=== PATIENT | male | born 1975 | race Caucasian/White ===

== ENCOUNTER 2016-12-03 08:49 | Emergency (ER) | payer OTHER ==
[~2016-12-03] VITALS: Ht 177.8 cm; Wt 100.3 kg
[~2016-12-03 08:49] MED LIST: BEN20 PO; COL100 PO; FLA500 PO; MORGIDOX 1X100100 MG PO; MOT600 PO; NOR10T PO; ROB750 PO; TRA50 PO; ULT50 PO; ZOF4 PO; ZOL50 PO; ZYV600 PO
[2016-12-03 10:56] VITALS: BP 145/99
== END 2016-12-03 10:56 | disposition home or self-care (01) ==
LOC: ED 08:49
DX: L02.811 Cutaneous abscess of head [any part, except face] (principal)

== ENCOUNTER 2017-01-22 15:05 | Emergency (ER) | payer OTHER ==
[2017-01-22 16:27] LABS: BASOPHIL % 0.7 % (0-2); PLATELET COUNT 187 x10^3mcL (130-400); RED CELL DISTRIBUTION WIDTH 13.2 % (11.5-14.5)
[2017-01-22 16:33] LABS: CALCIUM 8.8 mg/dL (8.5-10.1); CARBON DIOXIDE 24.9 mmol/L (21-32); CHLORIDE SERUM 108 mmol/L (98-107); CREATININE SERUM 1.2 mg/dL (0.7-1.3); GFR1 > 60 mL/min; GLUCOSE SERUM 122 mg/dL (74-106); POTASSIUM SERUM 3.4 mmol/L (3.5-5.1); SODIUM SERUM 146 mmol/L (136-145)
[2017-01-22 16:36] LABS: ALKALINE PHOSPHATASE 56 U/L (46-116); ALT/SGPT 40 U/L (16-63); AMYLASE 51 U/L (25-115); AST/SGOT 21 U/L (15-37); BILIRUBIN TOTAL 0.79 mg/dL (0.20-1.00); LIPASE 240 IU/L (73-393); TOTAL PROTEIN, SERUM 7.3 g/dL (6.4-8.2)
[2017-01-22 18:55] VITALS: BP 115/75
== END 2017-01-22 18:55 | disposition home or self-care (01) ==
LOC: ED 15:05
PROVIDERS: Emergency Medicine
DX: K59.00 Constipation, unspecified (principal); R11.10 Vomiting, unspecified
CPT/HCPCS: 83880; J2270; J2405; J3490; J7030

== ENCOUNTER 2017-01-30 20:00 | Emergency (ER) | payer OTHER ==
[~2017-01-30] VITALS: Ht 177.8 cm; Wt 93.9 kg
[2017-01-30 21:19] VITALS: BP 136/106
== END 2017-01-30 21:19 | disposition home or self-care (01) ==
LOC: ED 20:00
DX: M72.2 Plantar fascial fibromatosis (principal); R03.0 Elevated blood-pressure reading, without diagnosis of hypertension

== ENCOUNTER 2017-03-06 08:20 | Emergency (ER) | payer OTHER ==
[~2017-03-06] VITALS: Ht 177.8 cm; Wt 97.1 kg
[2017-03-06 10:04] VITALS: BP 155/95
== END 2017-03-06 10:04 | disposition home or self-care (01) ==
LOC: ED 08:20
DX: R07.89 Other chest pain (principal); R10.11 Right upper quadrant pain
CPT/HCPCS: J2270

== ENCOUNTER 2017-03-24 13:02 | Emergency (ER) | payer OTHER ==
[2017-03-24 13:55] LABS: BASOPHIL % 0.4 % (0-2); PLATELET COUNT 242 x10^3mcL (130-400); RED CELL DISTRIBUTION WIDTH 13.5 % (11.5-14.5)
[2017-03-24 15:07] LABS: CALCIUM 8.9 mg/dL (8.5-10.1); CARBON DIOXIDE 27.5 mmol/L (21-32); CREATININE SERUM 1.4 mg/dL (0.7-1.3); POTASSIUM SERUM 3.6 mmol/L (3.5-5.1)
[2017-03-24 15:12] LABS: ALBUMIN 4.1 g/dL (3.4-5.0); BILIRUBIN TOTAL 0.6 mg/dL (0.20-1.00); TOTAL PROTEIN, SERUM 7.7 g/dL (6.4-8.2)
[2017-03-24 16:01] VITALS: BP 144/87
== END 2017-03-24 16:01 | disposition home or self-care (01) ==
LOC: ED 13:02
PROVIDERS: Emergency Medicine
DX: R10.9 Unspecified abdominal pain (principal); R04.2 Hemoptysis; Z90.49 Acquired absence of other specified parts of digestive tract; F43.10 Post-traumatic stress disorder, unspecified; Z79.891 Long term (current) use of opiate analgesic
CPT/HCPCS: J1885; J3010; J7040; Q0092

== ENCOUNTER 2017-06-07 16:44 | Emergency (ER) | payer OTHER ==
[~2017-06-07] VITALS: Ht 177.8 cm; Wt 96.2 kg
[2017-06-07 17:45] VITALS: BP 158/99
== END 2017-06-07 17:45 | disposition home or self-care (01) ==
LOC: ED 16:44
DX: R04.2 Hemoptysis (principal); R03.0 Elevated blood-pressure reading, without diagnosis of hypertension; F43.10 Post-traumatic stress disorder, unspecified

== ENCOUNTER 2017-07-03 14:26 | Emergency (ER) | payer OTHER | END 2017-07-03 16:34 | disposition other institution (70) | LOC: ED 14:26 | DX: Z02.89 Encounter for other administrative examinations (principal) ==

== ENCOUNTER 2017-07-03 14:26 | Emergency (ER) | payer OTHER ==
[~2017-07-03] VITALS: Ht 177.8 cm; Wt 95.2 kg
[2017-07-03 16:34] VITALS: BP 146/92
== END 2017-07-03 16:34 | disposition other institution (70) ==
LOC: ED 14:26
DX: S66.318A Strain of extensor muscle, fascia and tendon of other finger at wrist and hand level, initial encounter (principal); F41.9 Anxiety disorder, unspecified; Z90.89 Acquired absence of other organs; X58.XXXA Exposure to other specified factors, initial encounter; Y93.89 Activity, other specified; Y92.89 Other specified places as the place of occurrence of the external cause; Y99.8 Other external cause status

== ENCOUNTER 2017-08-16 21:16 | Emergency (ER) | payer OTHER ==
[~2017-08-16] VITALS: Ht 175.3 cm; Wt 93.0 kg
[2017-08-16 21:21] VITALS: Ht 175.3 cm; Wt 93.0 kg
[2017-08-17 00:06] VITALS: BP 129/83
== END 2017-08-17 00:06 | disposition home or self-care (01) ==
LOC: ED 21:16
DX: J02.9 Acute pharyngitis, unspecified (principal); J06.9 Acute upper respiratory infection, unspecified
CPT/HCPCS: J0561; J1100

== ENCOUNTER 2017-08-20 18:30 | Emergency (ER) | payer OTHER ==
[~2017-08-20] VITALS: Ht 177.8 cm; Wt 89.8 kg
[2017-08-20 18:36] VITALS: BP 118/51; Ht 177.8 cm; Wt 89.8 kg
== END 2017-08-20 19:51 | disposition left against medical advice (07) ==
LOC: ED 18:30
DX: Z53.21 Procedure and treatment not carried out due to patient leaving prior to being seen by health care provider (principal)

== ENCOUNTER 2018-04-24 23:19 | Emergency (ER) | payer MEDICAID ==
[~2018-04-24] VITALS: Ht 177.8 cm; Wt 96.2 kg
[2018-04-24 23:24] VITALS: Ht 177.8 cm; Wt 96.2 kg
[2018-04-25 01:23] VITALS: BP 141/99
== END 2018-04-25 01:23 | disposition home or self-care (01) ==
LOC: ED 23:19
DX: G89.29 Other chronic pain (principal); R10.9 Unspecified abdominal pain; R07.89 Other chest pain; Z87.19 Personal history of other diseases of the digestive system

== ENCOUNTER 2018-06-12 10:09 | Inpatient (IN) | payer MEDICAID ==
[~2018-06-12] VITALS: Ht 177.8 cm; Wt 97.3 kg
[2018-06-12 10:13] VITALS: Ht 177.8 cm; Wt 97.3 kg
[2018-06-12 11:39] LABS: BASOPHIL % 1.4 % (0-2); PLATELET COUNT 191 x10^3mcL (130-400); RED CELL DISTRIBUTION WIDTH 13.1 % (11.5-14.5)
[2018-06-12 11:44] LABS: CALCIUM 9.2 mg/dL (8.5-10.1); CARBON DIOXIDE 26.1 mmol/L (21-32); CHLORIDE SERUM 104 mmol/L (98-107); GFR1 > 60 mL/min; GLUCOSE SERUM 108 mg/dL (74-106); POTASSIUM SERUM 3.8 mmol/L (3.5-5.1); SODIUM SERUM 137 mmol/L (136-145)
[2018-06-12 11:48] LABS: ALBUMIN 3.9 g/dL (3.4-5.0); ALKALINE PHOSPHATASE 64 U/L (46-116); ALT/SGPT 44 U/L (16-63); AST/SGOT 20 U/L (15-37); BILIRUBIN TOTAL 0.3 mg/dL (0.20-1.00); TOTAL PROTEIN, SERUM 7.3 g/dL (6.4-8.2)
[2018-06-12 14:58] LABS: T3 TOTAL 1.24 ng/mL
[2018-06-12 15:02] LABS: MAGNESIUM 2.2 mg/dL (1.8-2.4); PHOSPHOROUS 3.1 mg/dL (2.5-4.9)
[2018-06-12 15:03] LABS: CHOLESTEROL/HDL RATIO 6.5
[2018-06-12] MEDS ORDERED: XANAX0.5 MG PO (15:04)
[2018-06-12] MEDS ORDERED: NORCO 10-325 T1 EACH PO (15:04)
[2018-06-12 15:06] LABS: FREE T4 0.91 ng/dL (0.76-1.46); FREE THYROXINE INDEX 2.2 ug/dL (1.4-4.5); T4(THYROXINE) 6.3 ug/dL (4.7-13.3)
[2018-06-12 16:11] VITALS: BP 143/104
[2018-06-12 20:43] VITALS: BP 128/85
[2018-06-13 04:23] LABS: BASOPHIL % 1.2 % (0-2); PLATELET COUNT 195 x10^3mcL (130-400); RED CELL DISTRIBUTION WIDTH 13.2 % (11.5-14.5)
[2018-06-13 04:34] LABS: CALCIUM 8.7 mg/dL (8.5-10.1); CARBON DIOXIDE 29.3 mmol/L (21-32); CHLORIDE SERUM 105 mmol/L (98-107); GFR1 > 60 mL/min; GLUCOSE SERUM 106 mg/dL (74-106); MAGNESIUM 1.9 mg/dL (1.8-2.4); PHOSPHOROUS 4.5 mg/dL (2.5-4.9); POTASSIUM SERUM 4.2 mmol/L (3.5-5.1); SODIUM SERUM 139 mmol/L (136-145)
[2018-06-13 06:08] VITALS: BP 141/92
[2018-06-13 08:23] VITALS: BP 119/83
[2018-06-13 11:30] VITALS: BP 117/82
[2018-06-13 17:16] VITALS: BP 124/81
[2018-06-13 21:16] VITALS: BP 144/94
[2018-06-14 05:28] VITALS: BP 118/85
[2018-06-14 06:11] LABS: CALCIUM 8.8 mg/dL (8.5-10.1); CARBON DIOXIDE 27.6 mmol/L (21-32); CHLORIDE SERUM 108 mmol/L (98-107); CREATININE SERUM 0.9 mg/dL (0.7-1.3); GFR1 > 60 mL/min; GLUCOSE SERUM 110 mg/dL (74-106); POTASSIUM SERUM 3.7 mmol/L (3.5-5.1); SODIUM SERUM 141 mmol/L (136-145)
[2018-06-14 07:59] LABS: BASOPHIL % 1.2 % (0-2); PLATELET COUNT 194 x10^3mcL (130-400); RED CELL DISTRIBUTION WIDTH 13.1 % (11.5-14.5)
[2018-06-14 09:30] VITALS: BP 118/82
[2018-06-14] MEDS ORDERED: ZES10 PO (10:30)
[2018-06-14 11:22] VITALS: BP 118/82
== END 2018-06-14 11:50 | disposition home or self-care (01) | DRG 756 ==
LOC: ED 10:09 → DU 14:02
PROVIDERS: Emergency Medicine; Family Medicine
DX: F41.9 Anxiety disorder, unspecified (principal); R04.2 Hemoptysis; I16.0 Hypertensive urgency; F15.10 Other stimulant abuse, uncomplicated; E78.5 Hyperlipidemia, unspecified; E66.9 Obesity, unspecified; Z68.31 Body mass index [BMI] 31.0-31.9, adult
CPT/HCPCS: 36600; 83880; 84439; 85378; G0480; Q9967

== ENCOUNTER 2018-08-13 04:29 | Emergency (ER) | payer OTHER ==
[~2018-08-13] VITALS: Ht 177.8 cm; Wt 103.0 kg
[~2018-08-13 04:29] MED LIST changes: +NORCO 10-325 T1 EACH PO; +XANAX0.5 MG PO; +ZES10 PO
[2018-08-13 04:31] VITALS: Ht 177.8 cm; Wt 103.0 kg
[2018-08-13 05:28] VITALS: BP 157/103
== END 2018-08-13 05:25 | disposition home or self-care (01) ==
LOC: ED 04:29
DX: G89.29 Other chronic pain (principal); R07.89 Other chest pain; R10.9 Unspecified abdominal pain; F41.9 Anxiety disorder, unspecified
CPT/HCPCS: J1885; Q0092

== ENCOUNTER 2018-08-27 04:23 | Emergency (ER) | payer OTHER ==
[~2018-08-27] VITALS: Ht 190.5 cm; Wt 40.8 kg
[2018-08-27 04:26] VITALS: Ht 190.5 cm; Wt 40.8 kg
[2018-08-27 05:33] LABS: BASOPHIL % 0.8 % (0-2); PLATELET COUNT 188 x10^3mcL (130-400); RED CELL DISTRIBUTION WIDTH 13.3 % (11.5-14.5)
[2018-08-27 05:37] LABS: CALCIUM 8.6 mg/dL (8.5-10.1); CHLORIDE SERUM 103 mmol/L (98-107); GFR1 > 60 mL/min; GLUCOSE SERUM 129 mg/dL (74-106); POTASSIUM SERUM 3.7 mmol/L (3.5-5.1); SODIUM SERUM 139 mmol/L (136-145)
[2018-08-27 05:42] LABS: ALBUMIN 3.7 g/dL (3.4-5.0); ALKALINE PHOSPHATASE 62 U/L (46-116); ALT/SGPT 74 U/L (16-63); AST/SGOT 43 U/L (15-37); BILIRUBIN TOTAL 0.28 mg/dL (0.20-1.00); TOTAL PROTEIN, SERUM 6.6 g/dL (6.4-8.2)
[2018-08-27 06:47] VITALS: BP 149/98
== END 2018-08-27 06:48 | disposition home or self-care (01) ==
LOC: ED 04:23
PROVIDERS: Emergency Medicine
DX: I10 Essential (primary) hypertension (principal); R07.89 Other chest pain; F41.9 Anxiety disorder, unspecified; G47.00 Insomnia, unspecified
CPT/HCPCS: 36415; J1885; Q0092

== ENCOUNTER 2018-11-06 03:36 | Emergency (ER) | payer OTHER ==
[~2018-11-06] VITALS: Ht 177.8 cm; Wt 105.2 kg
[2018-11-06 03:41] VITALS: Ht 177.8 cm; Wt 105.2 kg
[2018-11-06 04:27] LABS: CALCIUM 10.5 mg/dL (8.5-10.1); CARBON DIOXIDE 28.6 mmol/L (21-32); CHLORIDE SERUM 102 mmol/L (98-107); CREATININE SERUM 1.1 mg/dL (0.7-1.3); GFR1 > 60 mL/min; GLUCOSE SERUM 125 mg/dL (74-106); POTASSIUM SERUM 3.6 mmol/L (3.5-5.1); SODIUM SERUM 139 mmol/L (136-145)
[2018-11-06 04:32] LABS: ALBUMIN 3.8 g/dL (3.4-5.0); ALKALINE PHOSPHATASE 65 U/L (46-116); ALT/SGPT 111 U/L (16-63); AST/SGOT 77 U/L (15-37); BILIRUBIN TOTAL 0.51 mg/dL (0.20-1.00); LIPASE 224 IU/L (73-393); TOTAL PROTEIN, SERUM 7.2 g/dL (6.4-8.2)
[2018-11-06 04:37] LABS: BASOPHIL % 0.7 % (0-2); PLATELET COUNT 222 x10^3mcL (130-400); RED CELL DISTRIBUTION WIDTH 13.8 % (11.5-14.5)
[2018-11-06 05:45] VITALS: BP 135/77
== END 2018-11-06 05:45 | disposition home or self-care (01) ==
LOC: ED 03:36
PROVIDERS: Emergency Medicine
DX: R07.89 Other chest pain (principal); R10.13 Epigastric pain; R14.0 Abdominal distension (gaseous); F41.9 Anxiety disorder, unspecified; F43.10 Post-traumatic stress disorder, unspecified
CPT/HCPCS: J1885; J2405; J7030; Q0092

== ENCOUNTER 2019-02-22 19:44 | Emergency (ER) | payer OTHER ==
[~2019-02-22] VITALS: Ht 177.8 cm; Wt 96.6 kg
[2019-02-22 19:50] VITALS: Ht 177.8 cm; Wt 96.6 kg
[2019-02-22 20:28] LABS: BASOPHIL % 0.9 % (0-2); PLATELET COUNT 209 x10^3mcL (130-400); RED CELL DISTRIBUTION WIDTH 14.3 % (11.5-14.5)
[2019-02-22 20:38] LABS: CARBON DIOXIDE 25.3 mmol/L (21-32); CHLORIDE SERUM 106 mmol/L (98-107); CREATININE SERUM 0.9 mg/dL (0.7-1.3); GFR1 > 60 mL/min; GLUCOSE SERUM 102 mg/dL (74-106); POTASSIUM SERUM 3.6 mmol/L (3.5-5.1); SODIUM SERUM 143 mmol/L (136-145)
[2019-02-22 20:43] LABS: ALBUMIN 4.1 g/dL (3.4-5.0); ALKALINE PHOSPHATASE 57 U/L (46-116); ALT/SGPT 55 U/L (16-63); AST/SGOT 26 U/L (15-37); BILIRUBIN TOTAL 0.52 mg/dL (0.20-1.00); CHOLESTEROL 196 mg/dL (<200); CHOLESTEROL/HDL RATIO 4.6; HDL CHOLESTEROL 43 mg/dL (40-60); TOTAL PROTEIN, SERUM 7.2 g/dL (6.4-8.2); TRIGLYCERIDES 172 mg/dL (<150)
[2019-02-22 21:24] LABS: AMPHETAMINE QUAL UR POSITIVE (See below)
[2019-02-23 00:19] VITALS: BP 166/114
== END 2019-02-23 00:19 | disposition home or self-care (01) ==
LOC: ED 19:44
PROVIDERS: Specialist
DX: R04.2 Hemoptysis (principal); R07.89 Other chest pain; R10.13 Epigastric pain; R10.11 Right upper quadrant pain; F15.10 Other stimulant abuse, uncomplicated; F41.9 Anxiety disorder, unspecified; Z90.49 Acquired absence of other specified parts of digestive tract; Z98.890 Other specified postprocedural states
CPT/HCPCS: G0480; J3010; J7030; Q0092; Q9967

== ENCOUNTER 2019-03-03 04:38 | Inpatient (IN) | payer OTHER ==
[~2019-03-03] VITALS: Ht 177.8 cm; Wt 99.8 kg
[2019-03-03 04:41] VITALS: Ht 177.8 cm; Wt 99.8 kg
--- NOTE | 2019-03-03 04:44 | NUR ---
EKG IN PROGRESS IN TRIAGE
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
[2019-03-03 06:02] LABS: BASOPHIL % 0.7 % (0-2); PLATELET COUNT 167 x10^3mcL (130-400); RED CELL DISTRIBUTION WIDTH 13.9 % (11.5-14.5)
[2019-03-03 06:10] LABS: CALCIUM 8.7 mg/dL (8.5-10.1); CHLORIDE SERUM 106 mmol/L (98-107); GFR1 > 60 mL/min; GLUCOSE SERUM 116 mg/dL (74-106); POTASSIUM SERUM 3.3 mmol/L (3.5-5.1); SODIUM SERUM 142 mmol/L (136-145)
[2019-03-03 06:15] LABS: ALBUMIN 3.4 g/dL (3.4-5.0); ALKALINE PHOSPHATASE 62 U/L (46-116); ALT/SGPT 40 U/L (16-63); AST/SGOT 15 U/L (15-37); LIPASE 246 IU/L (73-393); TOTAL PROTEIN, SERUM 6.5 g/dL (6.4-8.2)
--- NOTE | 2019-03-03 06:30 | NUR ---
PT IS LAYING IN POSITION OF COMFORT IN SEMI JARRETT'S, PT IS AAOX4, NO DISTRESS NOTED, RESP E/U, SKIN INTACT WARM AND DRY. PT ON FULL CM, NSR, VSS, MMADE AWARE. BED IN LOWEST POSITION, SIDERAIL X1 UP FOR SAFETY, ADN CALL AGOSTO WITHIN REACH. WILL CONT TO MONITOR.
--- NOTE | 2019-03-03 07:09 | NUR ---
GAVE REPORT TO TRUDY GUAMAN WHO WILL RESUME FURTHER CARE OF THIS PATIENT.
--- NOTE | 2019-03-03 07:13 | NUR ---
REPORT RECEIVED FROM DENIZ MONTES. PT NOTED TO BE RESTING ON ED GURNEY, RESPS E/U, NAD NOTED, IV TO LFA PATENT.PT ON FULL CM, CALL LIGHT WITHIN REACH, IN POSITION OF COMFORT.
--- NOTE | 2019-03-03 07:41 | NUR ---
GAVE REPORT TO MOISÉS GUAMAN ON TELE WHO WILL RESUME FURTHER CARE OF THIS PATIENT.
--- NOTE | 2019-03-03 07:46 | NUR ---
INFORMED MD OF PATIENT'S REQUEST FOR PAIN MEDICATION, DR WEISS TO PT IN ORDERS FOR PAIN MEDICATION.
--- NOTE | 2019-03-03 08:03 | NUR ---
PT MEDICATED PER EMAR.
[2019-03-03 08:57] VITALS: BP 147/94
[2019-03-03 08:59] LABS: AMYLASE 57 U/L (25-115); PHOSPHOROUS 3.2 mg/dL (2.5-4.9)
[2019-03-03 09:14] LABS: CHOLESTEROL 206 mg/dL (<200); CHOLESTEROL/HDL RATIO 6.9; HDL CHOLESTEROL 30 mg/dL (40-60); TRIGLYCERIDES 413 mg/dL (<150)
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
--- NOTE | 2019-03-03 09:43 | NUR ---
NORCO GIVEN PER OCT FOR CHEST/THROAT PAIN 04/14, PLUS TUMS. IV INFUSION NS 70 ML/HR TO LFA STARTED PER OCT, SITE WITHOUT COMPLICATIONS, PATENT. WILL MONITOR.
--- NOTE | 2019-03-03 10:39 | NUR ---
SPOKE WITH DR. BARNETT IN [facility] DURING ROUNDS. INFORMED PATIENT HAS HAD NO RELIEF OF CHEST PAIN 04/14 FROM [place]. DOCTOR TO EVALUATE AND PLACE ORDERS APPROPRIATE. WILL AWAIT ORDERS.
--- NOTE | 2019-03-03 13:29 | NUR ---
PATIENT REPORTING 9/10 PAIN TO UPPER CHEST AND THROAT UNRELIEVED BY NORCO AND TUMS OR FENTANYL IN THE E.D. PRIOR TO ARRIVAL TO THE UNIT. MORPHINE 2 MG IVP GIVEN PER OCT. WILL MONITOR.
--- NOTE | 2019-03-03 15:15 | NUR ---
PATIENT HAVING ECHOCARDIOGRAM AT THIS TIME. NO APPARENT DISTRESS.
[2019-03-03 17:46] VITALS: BP 153/89
[2019-03-03 18:10] LABS: microscopic required? NO
[2019-03-03 18:15] LABS: urine erythrocyte NEGATIVE (NEGATIVE)
[2019-03-03 18:30] LABS: AMPHETAMINE QUAL UR POSITIVE (See below)
--- NOTE | 2019-03-03 18:52 | NUR ---
MORPHINE GIVEN PER MAR FOR 03/14 CHEST/THROAT PAIN. NO OTHER NEEDS AT THIS TIME. WILL MONITOR.
--- NOTE | 2019-03-03 19:35 | NUR ---
REPORT GIVEN TO DENIZ ELAINE. NS 70 ML/HR INFUSING TO LEFT FOREARM WITHOUT COMPLICATIONS. PATIENT IN NO ACUTE DISTRESS. BED LOW, CALL LIGHT WITHIN REACH. CARE ENDORSED.
--- NOTE | 2019-03-03 20:00 | NUR ---
RECEIVED PT , RESTING QUIETLY IN BED. A/O X4. RESP. EVEN AND UNLABORED. LUNG SOUNDS CLEAR BILAT. ON ROOM AIR, NO ACUTE DISTRESS NOTED. SR ON THE MONITOR, DENIES CP OR ANY DISCOMFORT AT THIS TIME. AFEBRILE AND VITAL SIGNS STABLE. IVF, NS AT 70ML/HR, INTACT AND INFUSING VIA LFA. SITE CLEAR. VOIDING FREELY. CALL LIGHT WITHIN REACH.WILL CONTINUE TO MONITOR.
[2019-03-03 21:23] VITALS: BP 133/88
--- NOTE | 2019-03-03 23:20 | NUR ---
NECK COLLAR APPLIED. WILL CONTINUE TO MONITOR.
--- NOTE | 2019-03-04 01:44 | NUR ---
NO COMPLAINTS NOTED AT THIS TIME. EYES CLOSED, APPEARS ASLEEP, EASILY AROUSABLE.RESP. EVEN AND UNLABORED. NO ACUTE DISTRESS NOTED. CALL LIGHT WITHIN REACH. WILL CONTINUE TO MONITOR.
--- NOTE | 2019-03-04 02:16 | NUR ---
COMPLAINED OF GEN. BODY PAIN, 5/10, MEDICATED WITH MORPHINE SULFATE ORDERED. WILL CONTINUE TO MONITOR.
[2019-03-04 05:57] VITALS: BP 157/90
--- NOTE | 2019-03-04 06:26 | NUR ---
AFEBRILE AND VITAL SIGNS STABLE. NO COMPLAINTS NOTED AT THIS TIME. RESP. EVEN AND UNLABORED, NO ACUTE DISTRESS NOTED. REMAINS SR ON THE MONITOR, DENIES CP OR PRESSURE AT THIS TIME. IVF INTACT AND INFUSING WELL , SITE CLEAR. KEPT COMFORTABLE. CALL LIGHT WITHIN REACH. WILL ENDORSE TO INCOMING NURSE.
--- NOTE | 2019-03-04 07:10 | NUR ---
RECEIVED PT FROM NIGHT NURSE. PT IS LAYING DOWN IN BED WITH HOB UP WITH A NECK COLLAR PRESENT. PT STATES THE NECK COLLAR HELPS WITH THE PAIN AND HELPS HIM TO HOLD UP HIS HEAD. RESPIRATIONS EVEN AND UNLABORED ON ROOM AIR. IV SITE PATENT WITH NO SIGNS OF ERYTHEMA OR SWELLING WITH IV FLUIDS INFUSING. PT DENIES ANY EPISODES OF BLOODY VOMIT OVER NIGHT. PT IS COMPLAINING OF 8/10 PAIN TO THE NECK. BED IN LOWEST POSITION, CALL LIGHT WITHIN REACH. WILL CONTINUE TO MONITOR.
[2019-03-04 09:31] VITALS: BP 160/91
[2019-03-04 10:19] LABS: BASOPHIL % 0.7 % (0-2); PLATELET COUNT 169 x10^3mcL (130-400); RED CELL DISTRIBUTION WIDTH 14.1 % (11.5-14.5)
[2019-03-04 10:25] LABS: CALCIUM 8.6 mg/dL (8.5-10.1); CARBON DIOXIDE 28.4 mmol/L (21-32); CHLORIDE SERUM 104 mmol/L (98-107); CREATININE SERUM 0.9 mg/dL (0.7-1.3); GFR1 > 60 mL/min; GLUCOSE SERUM 100 mg/dL (74-106); POTASSIUM SERUM 3.5 mmol/L (3.5-5.1); SODIUM SERUM 141 mmol/L (136-145)
[2019-03-04 12:50] VITALS: BP 150/102
--- NOTE | 2019-03-04 15:05 | NUR ---
PT COMPLAINING OF PAIN 8/10 TO THE NECK AND THROAT. PT REQUESTING MORPHINE BY NAME. NECK COLLAR PRESENT. WILL MEDICATE ACCORDING TO EMAR.
[2019-03-04 16:12] VITALS: BP 130/78
--- NOTE | 2019-03-04 18:19 | NUR ---
PT IS LAYING DOWN IN BED WITH HOB UP RESTING. NECK COLLAR IN PLACE. PT LOOKS TO BE IN NO ACUTE DISTRESS AT THIS TIME. IV SITE PATENT WITH NO SIGNS OF ERYTHEMA OR SWELLING WITH IV FLUIDS INFUSING. RESPIRATIONS EVEN AND UNLABORED ON ROOM AIR. BED IN LOWEST POSITION, CALL LIGHT WITHIN REACH. WILL ENDORSE TO ONCOMING SHIFT.
[2019-03-04 19:17] VITALS: BP 141/93
--- NOTE | 2019-03-04 20:04 | NUR ---
PT CURRENTLY RESTING IN BED, NO ACUTE DISTRESS. A/O X4. TELE #11 SHOWING SINUS RHYTHM WITH OCCASIONAL PAC'S. DENIES CHEST PAIN. PULSES PALPABLE IN ALL EXTREMITIES, NO EDEMA NOTED. LUNG SOUNDS CTA BILATERALLY, DENIES SOB. BOWEL SOUNDS ACTIVE, LAST BM 03/03/19. VOIDING WELL. AMBULATORY. SKIN INTACT. C/O NECK PAIN 02/11, COLLAR IN PLACE, WILL MEDICATE PAIN PER EMAR. IV PATENT AND INTACT. BED IN LOWEST POSITION, SIDE RAILS UP X2, CALL LIGHT WITHIN REACH. WILL CONTINUE TO MONITOR.
--- NOTE | 2019-03-05 00:54 | NUR ---
PT CURRENTLY RESTING IN BED, NO ACUTE DISTRESS. WILL CONTINUE TO MONITOR.
[2019-03-05 05:02] VITALS: BP 138/101
[2019-03-05 06:58] LABS: BASOPHIL % 0.5 % (0-2); PLATELET COUNT 185 x10^3mcL (130-400); RED CELL DISTRIBUTION WIDTH 13.6 % (11.5-14.5)
--- NOTE | 2019-03-05 07:10 | NUR ---
RECEIVED PT FROM NIGHT NURSE PT IS LAYING DOWN IN BED WITH HOB UP RESTING. NECK COLLAR IS ON THE BED, PT STATES DOES NOT NEED IT AT THE MOMENT BUT IS COMPLAINING OF 8/10 PAIN TO THE NECK. PT LOOKS TO BE IN NO ACUTE DISTRESS AT THIS TIME. IV SITE PATENT WITH NO SIGNS OF ERYTHEMA OR SWELLING WITH IV FLUIDS INFUSING. TELE MONITOR PRESENT. RESPIRATIONS EVEN AND UNLABORED ON ROOM AIR. BED IN LOWEST POSITION, CALL LIGHT WITHIN REACH. WILL CONTINUE TO MONITOR.
[2019-03-05 07:31] LABS: CALCIUM 8.9 mg/dL (8.5-10.1); CARBON DIOXIDE 28.5 mmol/L (21-32); CHLORIDE SERUM 104 mmol/L (98-107); CREATININE SERUM 0.7 mg/dL (0.7-1.3); GFR1 > 60 mL/min; GLUCOSE SERUM 88 mg/dL (74-106); POTASSIUM SERUM 3.8 mmol/L (3.5-5.1); SODIUM SERUM 140 mmol/L (136-145)
--- NOTE | 2019-03-05 08:15 | NUR ---
PT COMPLAINING OF PAIN 9/10 THROBBING PAIN TO THE NECK. PT STATES THAT NOTHING MAKES IT BETTER AND NOTHING MAKES IT WORSE. PT STATES THAT HE DOES NOT WANT TO USE THE NECK COLLAR AT THIS TIME. PT IS LAYING DOWN IN BED AT THIS TIME. BED IN LOWEST POSITION, WILL CONTINUE MEDICATE ACCORDING TO EMAR.
[2019-03-05 08:16] VITALS: BP 159/97
--- NOTE | 2019-03-05 09:50 | NUR ---
PT REFUSED CT ORDERED. PT STATED DOES NOT WANT THE RADIATION. INFORMED DR. BIRD OF THE PT'S REFUSAL. DR. BIRD AWARE AND STATED WILL CANCEL ORDER FOR CT. INFORMED RADIOLOGY OF CANCELED ORDER.
[2019-03-05 12:48] VITALS: BP 149/81
--- NOTE | 2019-03-05 14:15 | NUR ---
PT IS ASKING TO SPEAK WITH THE ABOUT THE INFORMATION THAT WILL BE ON HIS DISCHARGE INFORMATION. PT IS CONCERNED THAT THE DISCHARGE INFORMATION WILL SHOW THAT HE "WAS IN HERE FOR DRUGS" INFORMED DR. CARDENAS WHO WILL GO IN AND SPEAK WITH THE PT.
--- NOTE | 2019-03-05 15:52 | NUR ---
PT AWAKE, ALERT AND ORIENTED AT TIME OF DISCHARGE. PT LOOKS TO BE IN NO ACUTE DISTRESS AT TIME OF DISCHARGE BUT IS COMPLAINING THAT ACCORDING TO HIS DISCHARGE INFORMATION IT LOOKS THOUGH HE "IS A DRUG ADDICT AND CAME INTO THE HOSPITAL FOR DRUGS." PT WAS DISCHARGE HOME AND WALKED TO THE [facility] ACCOMPANIED BY NURSE WITH CHARAN IN HAND. EDUCATION PROVIDED TO PT AND INFORMED PT OF FOLLOW UP APPOINTMENT AND THE IMPORTANCE OF GOING TO THE FOLLOW UP APPOINTMENT. PT VERBALIZED UNDERSTANDING. NO NEW PRESCRIPTIONS FOR THE PT. IV REMOVED AND CATHETER FULLY INTACT. TELE MONITOR REMOVED AND RETURNED TO TELE STATION. ID BANDS REMOVED. ALL QUESTIONS AND CONCERNS ADDRESSED.
== END 2019-03-05 15:29 | disposition home or self-care (01) | DRG 115 ==
LOC: ED 04:38 → DU 06:46
PROVIDERS: Emergency Medicine; Internal Medicine; ADMIT General Practice
DX: S09.8XXA Other specified injuries of head, initial encounter (principal); K92.0 Hematemesis; R07.89 Other chest pain; F15.188 Other stimulant abuse with other stimulant-induced disorder; E87.6 Hypokalemia; F43.10 Post-traumatic stress disorder, unspecified; F41.9 Anxiety disorder, unspecified; I10 Essential (primary) hypertension; E78.5 Hyperlipidemia, unspecified; Z68.39 Body mass index [BMI] 39.0-39.9, adult; Z87.828 Personal history of other (healed) physical injury and trauma; Z79.891 Long term (current) use of opiate analgesic; Y92.009 Unspecified place in unspecified non-institutional (private) residence as the place of occurrence of the external cause
CPT/HCPCS: 83880; G0378; J2270; J3010; J7030; Q0092; Q9967

== ENCOUNTER 2019-06-13 23:29 | Emergency (ER) | payer OTHER ==
[~2019-06-13] VITALS: Ht 177.8 cm; Wt 97.5 kg
[2019-06-13 23:33] VITALS: Ht 177.8 cm; Wt 97.5 kg
[2019-06-14 00:14] LABS: BASOPHIL % 0.6 % (0-2); PLATELET COUNT 189 x10^3mcL (130-400); RED CELL DISTRIBUTION WIDTH 13.3 % (11.5-14.5)
[2019-06-14 00:33] LABS: CALCIUM 8.5 mg/dL (8.5-10.1); CARBON DIOXIDE 27.1 mmol/L (21-32); CHLORIDE SERUM 108 mmol/L (98-107); GFR1 > 60 mL/min; GLUCOSE SERUM 101 mg/dL (74-106); POTASSIUM SERUM 3.5 mmol/L (3.5-5.1); SODIUM SERUM 145 mmol/L (136-145)
[2019-06-14 00:38] LABS: ALKALINE PHOSPHATASE 61 U/L (46-116); ALT/SGPT 55 U/L (16-63); AST/SGOT 33 U/L (15-37); BILIRUBIN TOTAL 0.5 mg/dL (0.20-1.00); TOTAL PROTEIN, SERUM 7.1 g/dL (6.4-8.2)
[2019-06-14 04:40] VITALS: BP 151/96
== END 2019-06-14 04:41 | disposition home or self-care (01) ==
LOC: ED 23:29
DX: K21.9 Gastro-esophageal reflux disease without esophagitis (principal); F41.9 Anxiety disorder, unspecified; F43.10 Post-traumatic stress disorder, unspecified; Z98.890 Other specified postprocedural states
CPT/HCPCS: C9113; J2765; J3010

== ENCOUNTER 2019-07-04 21:22 | Emergency (ER) | payer OTHER ==
[~2019-07-04] VITALS: Ht 177.8 cm; Wt 98.4 kg
[2019-07-04 21:27] VITALS: Ht 177.8 cm; Wt 98.4 kg
[2019-07-04 21:48] LABS: BASOPHIL % 0.8 % (0-2); PLATELET COUNT 229 x10^3mcL (130-400)
[2019-07-04 21:58] LABS: CALCIUM 8.4 mg/dL (8.5-10.1); CARBON DIOXIDE 26.2 mmol/L (21-32); CHLORIDE SERUM 103 mmol/L (98-107); CREATININE SERUM 0.9 mg/dL (0.7-1.3); GFR1 > 60 mL/min; GLUCOSE SERUM 119 mg/dL (74-106); POTASSIUM SERUM 3.7 mmol/L (3.5-5.1); SODIUM SERUM 139 mmol/L (136-145)
[2019-07-04 22:03] LABS: ALBUMIN 3.8 g/dL (3.4-5.0); ALKALINE PHOSPHATASE 76 U/L (46-116); ALT/SGPT 79 U/L (16-63); AST/SGOT 34 U/L (15-37); BILIRUBIN TOTAL 0.4 mg/dL (0.20-1.00); TOTAL PROTEIN, SERUM 7.2 g/dL (6.4-8.2)
[2019-07-04 23:15] VITALS: BP 144/91
== END 2019-07-04 23:17 | disposition home or self-care (01) ==
LOC: ED 21:22
PROVIDERS: Emergency Medicine
DX: R07.89 Other chest pain (principal); R11.10 Vomiting, unspecified; F41.9 Anxiety disorder, unspecified; Z98.890 Other specified postprocedural states
CPT/HCPCS: J1885; J2060; Q0092

== ENCOUNTER 2019-07-26 07:19 | Emergency (ER) | payer OTHER ==
[~2019-07-26] VITALS: Ht 177.8 cm; Wt 105.7 kg
[2019-07-26 07:41] VITALS: Ht 177.8 cm; Wt 105.7 kg
[2019-07-26 08:29] VITALS: BP 179/97
== END 2019-07-26 08:29 | disposition home or self-care (01) ==
LOC: ED 07:19
DX: M26.601 Right temporomandibular joint disorder, unspecified (principal); Z90.49 Acquired absence of other specified parts of digestive tract

== ENCOUNTER 2019-08-05 05:20 | Emergency (ER) | payer OTHER ==
[~2019-08-05] VITALS: Ht 177.8 cm; Wt 108.4 kg
[2019-08-05 05:30] VITALS: BP 161/107; Ht 177.8 cm; Wt 108.4 kg
== END 2019-08-05 09:53 | disposition home or self-care (01) ==
LOC: ED 05:20
DX: M62.830 Muscle spasm of back (principal)
CPT/HCPCS: J1885

== ENCOUNTER 2019-08-08 17:35 | Emergency (ER) | payer OTHER ==
[~2019-08-08] VITALS: Ht 177.8 cm; Wt 125.6 kg
[2019-08-08 17:55] VITALS: BP 168/112; Ht 177.8 cm; Wt 125.6 kg
== END 2019-08-08 19:43 | disposition left against medical advice (07) ==
LOC: ED 17:35
DX: Z53.21 Procedure and treatment not carried out due to patient leaving prior to being seen by health care provider (principal)

== ENCOUNTER 2019-08-13 02:40 | Emergency (ER) | payer OTHER ==
[~2019-08-13] VITALS: Ht 177.8 cm; Wt 107.1 kg
[2019-08-13 02:44] VITALS: Ht 177.8 cm; Wt 107.1 kg
[2019-08-13 05:40] VITALS: BP 128/56
== END 2019-08-13 05:40 | disposition home or self-care (01) ==
LOC: ED 02:40
DX: R51 Headache (principal); R42 Dizziness and giddiness
CPT/HCPCS: J1885; J2765; J7030

== ENCOUNTER 2019-09-05 03:06 | Emergency (ER) | payer OTHER ==
[~2019-09-05] VITALS: Ht 177.8 cm; Wt 107.5 kg
[2019-09-05 03:10] VITALS: Ht 177.8 cm; Wt 107.5 kg
[2019-09-05 05:21] VITALS: BP 160/104
== END 2019-09-05 05:21 | disposition home or self-care (01) ==
LOC: ED 03:06
DX: S90.424A Blister (nonthermal), right lesser toe(s), initial encounter (principal); F15.10 Other stimulant abuse, uncomplicated; I10 Essential (primary) hypertension; X58.XXXA Exposure to other specified factors, initial encounter; Y93.89 Activity, other specified; Y92.89 Other specified places as the place of occurrence of the external cause; Y99.8 Other external cause status

== ENCOUNTER 2019-09-17 16:00 | Emergency (ER) | payer OTHER ==
[~2019-09-17] VITALS: Ht 177.8 cm; Wt 105.2 kg
[2019-09-17 16:06] VITALS: Ht 177.8 cm; Wt 105.2 kg
[2019-09-17 16:49] VITALS: BP 162/107
== END 2019-09-17 17:48 | disposition home or self-care (01) ==
LOC: ED 16:00
DX: T63.441A Toxic effect of venom of bees, accidental (unintentional), initial encounter (principal); S01.431A Puncture wound without foreign body of right cheek and temporomandibular area, initial encounter; S11.93XA Puncture wound without foreign body of unspecified part of neck, initial encounter; F15.90 Other stimulant use, unspecified, uncomplicated; Z90.49 Acquired absence of other specified parts of digestive tract; Y92.89 Other specified places as the place of occurrence of the external cause
CPT/HCPCS: J7512; Q0163

== ENCOUNTER 2019-10-16 03:53 | Emergency (ER) | payer OTHER ==
[~2019-10-16] VITALS: Ht 177.8 cm; Wt 112.9 kg
[2019-10-16 03:59] VITALS: Ht 177.8 cm; Wt 112.9 kg
[2019-10-16 04:44] LABS: CALCIUM 8.6 mg/dL (8.5-10.1); CARBON DIOXIDE 29.9 mmol/L (21-32); CHLORIDE SERUM 102 mmol/L (98-107); GFR1 > 60 mL/min; GLUCOSE SERUM 168 mg/dL (74-106); POTASSIUM SERUM 3.7 mmol/L (3.5-5.1); SODIUM SERUM 139 mmol/L (136-145)
[2019-10-16 04:49] LABS: ALBUMIN 3.4 g/dL (3.4-5.0); ALKALINE PHOSPHATASE 80 U/L (46-116); ALT/SGPT 151 U/L (16-63); AST/SGOT 110 U/L (15-37); BILIRUBIN TOTAL 0.4 mg/dL (0.20-1.00); TOTAL PROTEIN, SERUM 7.1 g/dL (6.4-8.2)
[2019-10-16 06:25] VITALS: BP 154/111
== END 2019-10-16 06:25 | disposition home or self-care (01) ==
LOC: ED 03:53
PROVIDERS: Emergency Medicine
DX: R22.42 Localized swelling, mass and lump, left lower limb (principal); M79.662 Pain in left lower leg; Z90.49 Acquired absence of other specified parts of digestive tract
CPT/HCPCS: 36415; Q0092

== ENCOUNTER 2019-11-02 22:02 | Emergency (ER) | payer OTHER ==
[~2019-11-02] VITALS: Ht 177.8 cm; Wt 104.3 kg
[2019-11-02 22:08] VITALS: Ht 177.8 cm; Wt 104.3 kg
[2019-11-02 22:56] LABS: BASOPHIL % 0.9 % (0-2); PLATELET COUNT 216 x10^3mcL (130-400); RED CELL DISTRIBUTION WIDTH 12.9 % (11.5-14.5)
[2019-11-02 23:11] LABS: CALCIUM 9.7 mg/dL (8.5-10.1); CARBON DIOXIDE 29.6 mmol/L (21-32); CHLORIDE SERUM 103 mmol/L (98-107); CREATININE SERUM 0.9 mg/dL (0.7-1.3); GFR1 > 60 mL/min; GLUCOSE SERUM 196 mg/dL (74-106); POTASSIUM SERUM 3.8 mmol/L (3.5-5.1); SODIUM SERUM 142 mmol/L (136-145)
[2019-11-02 23:15] LABS: ALBUMIN 3.7 g/dL (3.4-5.0); ALKALINE PHOSPHATASE 88 U/L (46-116); ALT/SGPT 146 U/L (16-63); AST/SGOT 93 U/L (15-37); BILIRUBIN TOTAL 0.4 mg/dL (0.20-1.00); LIPASE 380 IU/L (73-393); TOTAL PROTEIN, SERUM 7.5 g/dL (6.4-8.2)
[2019-11-02 23:18] LABS: CHOLESTEROL 246 mg/dL (<200); HDL CHOLESTEROL 22 mg/dL (40-60)
[2019-11-02 23:20] LABS: UA SPECIFIC GRAVITY >=1.030 (1.005-1.035); microscopic required? YES; urine erythrocyte NEGATIVE (NEGATIVE)
[2019-11-02 23:38] LABS: AMPHETAMINE QUAL UR POSITIVE (See below)
[2019-11-03 00:15] VITALS: BP 152/105
== END 2019-11-03 00:15 | disposition home or self-care (01) ==
LOC: ED 22:02
PROVIDERS: Emergency Medicine
DX: F41.9 Anxiety disorder, unspecified (principal); R74.0 Nonspecific elevation of levels of transaminase and lactic acid dehydrogenase [LDH]; F15.10 Other stimulant abuse, uncomplicated
CPT/HCPCS: 36415; 83880; Q0092

== ENCOUNTER 2019-11-15 07:21 | Emergency (ER) | payer OTHER ==
[~2019-11-15] VITALS: Ht 177.8 cm; Wt 112.0 kg
[2019-11-15 07:28] VITALS: Ht 177.8 cm; Wt 112.0 kg
[2019-11-15 08:57] LABS: PLATELET COUNT 197 x10^3mcL (130-400); RED CELL DISTRIBUTION WIDTH 13.3 % (11.5-14.5)
[2019-11-15 09:30] LABS: CALCIUM 8.7 mg/dL (8.5-10.1); CHLORIDE SERUM 101 mmol/L (98-107); CREATININE SERUM 0.8 mg/dL (0.7-1.3); GFR1 > 60 mL/min; GLUCOSE SERUM 149 mg/dL (74-106); POTASSIUM SERUM 3.6 mmol/L (3.5-5.1); SODIUM SERUM 137 mmol/L (136-145)
[2019-11-15 09:34] LABS: ALBUMIN 3.6 g/dL (3.4-5.0); ALKALINE PHOSPHATASE 101 U/L (46-116); ALT/SGPT 122 U/L (16-63); AMYLASE 47 U/L (25-115); AST/SGOT 89 U/L (15-37); BILIRUBIN TOTAL 0.5 mg/dL (0.20-1.00); LIPASE 259 IU/L (73-393); TOTAL PROTEIN, SERUM 7.2 g/dL (6.4-8.2)
[2019-11-15 09:37] LABS: AMPHETAMINE QUAL UR POSITIVE (See below)
[2019-11-15 12:26] VITALS: BP 142/94
== END 2019-11-15 12:26 | disposition home or self-care (01) ==
LOC: ED 07:21
PROVIDERS: Specialist
DX: R10.11 Right upper quadrant pain (principal); R11.10 Vomiting, unspecified; Z90.49 Acquired absence of other specified parts of digestive tract
CPT/HCPCS: G0480; J2270; J2405; J3010; J7030

== ENCOUNTER 2019-11-29 16:57 | Inpatient (IN) | payer OTHER ==
[~2019-11-29] VITALS: Ht 177.8 cm; Wt 109.8 kg
[2019-11-29 17:16] VITALS: Ht 177.8 cm; Wt 109.8 kg
[2019-11-29 18:12] LABS: BASOPHIL % 0.4 % (0-2); PLATELET COUNT 228 x10^3mcL (130-400); RED CELL DISTRIBUTION WIDTH 13.3 % (11.5-14.5)
[2019-11-29 18:18] LABS: CALCIUM 9.2 mg/dL (8.5-10.1); CARBON DIOXIDE 26.6 mmol/L (21-32); CHLORIDE SERUM 100 mmol/L (98-107); CREATININE SERUM 1.1 mg/dL (0.7-1.3); GFR1 > 60 mL/min; GLUCOSE SERUM 288 mg/dL (74-106); POTASSIUM SERUM 3.5 mmol/L (3.5-5.1); SODIUM SERUM 136 mmol/L (136-145)
[2019-11-29 18:23] LABS: ALBUMIN 3.6 g/dL (3.4-5.0); ALKALINE PHOSPHATASE 92 U/L (46-116); ALT/SGPT 118 U/L (16-63); AST/SGOT 151 U/L (15-37); BILIRUBIN TOTAL 0.7 mg/dL (0.20-1.00); LIPASE 534 IU/L (73-393); TOTAL PROTEIN, SERUM 7.2 g/dL (6.4-8.2)
[2019-11-29 18:26] LABS: CHOLESTEROL 225 mg/dL (<200); CHOLESTEROL/HDL RATIO 10.7; HDL CHOLESTEROL 21 mg/dL (40-60); TRIGLYCERIDES 478 mg/dL (<150)
[2019-11-29 18:34] LABS: T3 TOTAL 1.25 ng/mL
[2019-11-29 18:59] LABS: FREE T4 1.44 ng/dL (0.76-1.46); FREE THYROXINE INDEX 2.7 ug/dL (1.4-4.5); T4(THYROXINE) 9.5 ug/dL (4.7-13.3)
[2019-11-29 19:23] LABS: UA SPECIFIC GRAVITY 1.025 (1.005-1.035); urine erythrocyte NEGATIVE (NEGATIVE)
[2019-11-29 19:29] LABS: microscopic required? YES
[2019-11-29 19:38] LABS: AMPHETAMINE QUAL UR POSITIVE (See below)
[2019-11-29 23:16] VITALS: BP 179/97
[2019-11-30 01:15] VITALS: BP 134/80
[2019-11-30 05:14] VITALS: BP 149/105
[2019-11-30 06:23] LABS: BASOPHIL % 0.7 % (0-2); PLATELET COUNT 223 x10^3mcL (130-400); RED CELL DISTRIBUTION WIDTH 13.3 % (11.5-14.5)
[2019-11-30 07:07] LABS: CALCIUM 8.8 mg/dL (8.5-10.1); CARBON DIOXIDE 27.2 mmol/L (21-32); CHLORIDE SERUM 104 mmol/L (98-107); CREATININE SERUM 0.9 mg/dL (0.7-1.3); GFR1 > 60 mL/min; GLUCOSE SERUM 153 mg/dL (74-106); PHOSPHOROUS 3.2 mg/dL (2.5-4.9); POTASSIUM SERUM 3.5 mmol/L (3.5-5.1); SODIUM SERUM 138 mmol/L (136-145)
[2019-11-30 07:51] VITALS: BP 146/96
[2019-11-30 12:02] VITALS: BP 154/98
[2019-11-30] MEDS ORDERED: BLOOD LANCETS1 EACH TOP (13:00)
[2019-11-30] MEDS ORDERED: TEST STRIPS1 EACH MC (13:01)
[2019-11-30] MEDS ORDERED: FORTAMET500 M1 PO (13:01)
[2019-11-30] MEDS ORDERED: NOR5 PO (13:02)
== END 2019-11-30 14:02 | disposition home or self-care (01) | DRG 282 ==
LOC: ED 16:57 → MU 20:18 → DU 20:18 → MU 23:07 → DU 23:40
PROVIDERS: Specialist; ADMIT Family Medicine
DX: K85.90 Acute pancreatitis without necrosis or infection, unspecified (principal); M62.82 Rhabdomyolysis; E11.65 Type 2 diabetes mellitus with hyperglycemia; F41.9 Anxiety disorder, unspecified; I10 Essential (primary) hypertension; F10.20 Alcohol dependence, uncomplicated; Y90.9 Presence of alcohol in blood, level not specified; F15.10 Other stimulant abuse, uncomplicated
CPT/HCPCS: 82962; 83880; 84439; 87804; C9113; G0378; G0480; J1885; J2270; J2405; J7030; Q0092

== ENCOUNTER 2019-12-02 12:15 | Emergency (ER) | payer OTHER ==
[~2019-12-02] VITALS: Ht 177.8 cm; Wt 108.9 kg
[~2019-12-02 12:15] MED LIST changes: +BLOOD LANCETS1 EACH TOP; +FORTAMET500 M1 PO; +NOR5 PO; +TEST STRIPS1 EACH MC
[2019-12-02 12:32] VITALS: Ht 177.8 cm; Wt 108.9 kg
[2019-12-02 14:31] VITALS: BP 145/98
== END 2019-12-02 14:31 | disposition home or self-care (01) ==
LOC: ED 12:15
DX: S39.012A Strain of muscle, fascia and tendon of lower back, initial encounter (principal); E11.65 Type 2 diabetes mellitus with hyperglycemia; F41.9 Anxiety disorder, unspecified; I10 Essential (primary) hypertension; Z90.49 Acquired absence of other specified parts of digestive tract; X58.XXXA Exposure to other specified factors, initial encounter; Y93.89 Activity, other specified; Y92.89 Other specified places as the place of occurrence of the external cause; Y99.8 Other external cause status
CPT/HCPCS: 82962; J1885

== ENCOUNTER 2019-12-24 09:27 | Emergency (ER) | payer OTHER ==
[~2019-12-24] VITALS: Ht 177.8 cm; Wt 110.7 kg
[2019-12-24 09:33] VITALS: Ht 177.8 cm; Wt 110.7 kg
[2019-12-24 12:15] VITALS: BP 148/95
== END 2019-12-24 12:15 | disposition home or self-care (01) ==
LOC: ED 09:27
DX: M54.6 Pain in thoracic spine (principal); F15.90 Other stimulant use, unspecified, uncomplicated; I10 Essential (primary) hypertension
CPT/HCPCS: 20552; J2001

== ENCOUNTER 2019-12-27 01:49 | Emergency (ER) | payer OTHER ==
[~2019-12-27] VITALS: Ht 177.8 cm; Wt 110.7 kg
[2019-12-27 01:58] VITALS: Ht 177.8 cm; Wt 110.7 kg
[2019-12-27 03:50] VITALS: BP 141/92
== END 2019-12-27 03:50 | disposition home or self-care (01) ==
LOC: ED 01:49
DX: M54.6 Pain in thoracic spine (principal); I10 Essential (primary) hypertension; F15.90 Other stimulant use, unspecified, uncomplicated; Z90.49 Acquired absence of other specified parts of digestive tract; Z98.890 Other specified postprocedural states
CPT/HCPCS: J1885; Q0092

== ENCOUNTER 2020-01-04 17:35 | Emergency (ER) | payer OTHER ==
[2020-01-04 17:37] VITALS: Ht 172.7 cm
[2020-01-04 19:30] LABS: CALCIUM 8.5 mg/dL (8.5-10.1); CARBON DIOXIDE 27.1 mmol/L (21-32); CHLORIDE SERUM 102 mmol/L (98-107); CREATININE SERUM 0.9 mg/dL (0.7-1.3); GFR1 > 60 mL/min; GLUCOSE SERUM 195 mg/dL (74-106); SODIUM SERUM 138 mmol/L (136-145)
[2020-01-04 19:34] LABS: BASOPHIL % 1.3 % (0-2); PLATELET COUNT 219 x10^3mcL (130-400); RED CELL DISTRIBUTION WIDTH 13.8 % (11.5-14.5)
[2020-01-04 19:35] LABS: ALBUMIN 3.4 g/dL (3.4-5.0); ALKALINE PHOSPHATASE 99 U/L (46-116); ALT/SGPT 113 U/L (16-63); AST/SGOT 107 U/L (15-37); BILIRUBIN TOTAL 0.4 mg/dL (0.20-1.00); MAGNESIUM 1.8 mg/dL (1.8-2.4)
[2020-01-04 20:59] VITALS: BP 164/113
== END 2020-01-04 20:59 | disposition home or self-care (01) ==
LOC: ED 17:35
PROVIDERS: Emergency Medicine
DX: F41.9 Anxiety disorder, unspecified (principal); F15.10 Other stimulant abuse, uncomplicated; R73.9 Hyperglycemia, unspecified; K21.9 Gastro-esophageal reflux disease without esophagitis; I10 Essential (primary) hypertension; Z98.890 Other specified postprocedural states
CPT/HCPCS: 82962; G0480; J2405; Q0092

== ENCOUNTER 2020-01-14 06:45 | Emergency (ER) | payer OTHER ==
[~2020-01-14] VITALS: Ht 177.8 cm; Wt 104.3 kg
[2020-01-14 06:53] VITALS: Ht 177.8 cm; Wt 104.3 kg
[2020-01-14 07:44] LABS: PLATELET COUNT 232 x10^3mcL (130-400); RED CELL DISTRIBUTION WIDTH 13.8 % (11.5-14.5)
[2020-01-14 07:50] LABS: CALCIUM 8.7 mg/dL (8.5-10.1); CARBON DIOXIDE 24.9 mmol/L (21-32); CHLORIDE SERUM 99 mmol/L (98-107); CREATININE SERUM 0.8 mg/dL (0.7-1.3); GFR1 > 60 mL/min; GLUCOSE SERUM 205 mg/dL (74-106); POTASSIUM SERUM 3.6 mmol/L (3.5-5.1); SODIUM SERUM 135 mmol/L (136-145)
[2020-01-14 07:55] LABS: ALBUMIN 3.7 g/dL (3.4-5.0); ALKALINE PHOSPHATASE 101 U/L (46-116); ALT/SGPT 128 U/L (16-63); AST/SGOT 121 U/L (15-37); BILIRUBIN TOTAL 0.6 mg/dL (0.20-1.00); TOTAL PROTEIN, SERUM 7.5 g/dL (6.4-8.2)
[2020-01-14 08:45] LABS: UA SPECIFIC GRAVITY >=1.030 (1.005-1.035); microscopic required? YES; urine erythrocyte NEGATIVE (NEGATIVE)
[2020-01-14 09:00] LABS: AMPHETAMINE QUAL UR POSITIVE (See below)
[2020-01-14 09:43] VITALS: BP 154/96
== END 2020-01-14 09:43 | disposition home or self-care (01) ==
LOC: ED 06:45
PROVIDERS: Emergency Medicine
DX: F10.239 Alcohol dependence with withdrawal, unspecified (principal); N39.0 Urinary tract infection, site not specified; R11.10 Vomiting, unspecified; I10 Essential (primary) hypertension; Z90.89 Acquired absence of other organs
CPT/HCPCS: 87491; 87591; J2405; Q0092

== ENCOUNTER 2020-01-17 13:57 | Emergency (ER) | payer OTHER ==
[~2020-01-17] VITALS: Ht 177.8 cm; Wt 106.6 kg
[2020-01-17 14:01] VITALS: Ht 177.8 cm; Wt 106.6 kg
[2020-01-17 15:29] LABS: BASOPHIL % 0.4 % (0-2); PLATELET COUNT 245 x10^3mcL (130-400); RED CELL DISTRIBUTION WIDTH 13.7 % (11.5-14.5)
[2020-01-17 15:35] LABS: CARBON DIOXIDE 25.2 mmol/L (21-32); CHLORIDE SERUM 99 mmol/L (98-107); CREATININE SERUM 0.9 mg/dL (0.7-1.3); GFR1 > 60 mL/min; GLUCOSE SERUM 200 mg/dL (74-106); POTASSIUM SERUM 3.6 mmol/L (3.5-5.1); SODIUM SERUM 135 mmol/L (136-145)
[2020-01-17 15:46] LABS: ALBUMIN 3.7 g/dL (3.4-5.0); ALKALINE PHOSPHATASE 98 U/L (46-116); ALT/SGPT 112 U/L (16-63); AST/SGOT 119 U/L (15-37); BILIRUBIN TOTAL 0.7 mg/dL (0.20-1.00); LIPASE 328 IU/L (73-393); TOTAL PROTEIN, SERUM 7.5 g/dL (6.4-8.2)
[2020-01-17 17:20] VITALS: BP 141/89
== END 2020-01-17 17:20 | disposition home or self-care (01) ==
LOC: ED 13:57
PROVIDERS: Emergency Medicine
DX: R10.817 Generalized abdominal tenderness (principal); R11.10 Vomiting, unspecified; I10 Essential (primary) hypertension; F10.10 Alcohol abuse, uncomplicated; F15.10 Other stimulant abuse, uncomplicated
CPT/HCPCS: J1885; J7030; Q9967

== ENCOUNTER 2020-02-11 01:03 | Emergency (ER) | payer OTHER ==
[~2020-02-11] VITALS: Ht 177.8 cm; Wt 107.5 kg
[2020-02-11 03:22] LABS: BASOPHIL % 0.5 % (0-2); PLATELET COUNT 192 x10^3mcL (130-400); RED CELL DISTRIBUTION WIDTH 13.3 % (11.5-14.5)
[2020-02-11 03:39] LABS: CARBON DIOXIDE 28.4 mmol/L (21-32); CHLORIDE SERUM 101 mmol/L (98-107); CREATININE SERUM 0.8 mg/dL (0.7-1.3); GFR1 > 60 mL/min; GLUCOSE SERUM 290 mg/dL (74-106); POTASSIUM SERUM 3.6 mmol/L (3.5-5.1); SODIUM SERUM 138 mmol/L (136-145)
[2020-02-11 03:43] LABS: ALBUMIN 3.5 g/dL (3.4-5.0); ALKALINE PHOSPHATASE 113 U/L (46-116); ALT/SGPT 90 U/L (16-63); AST/SGOT 93 U/L (15-37); LIPASE 289 IU/L (73-393); TOTAL PROTEIN, SERUM 7.3 g/dL (6.4-8.2)
[2020-02-11 05:51] VITALS: BP 168/117
== END 2020-02-11 05:51 | disposition home or self-care (01) ==
LOC: ED 01:03
PROVIDERS: Emergency Medicine
DX: R10.31 Right lower quadrant pain (principal); R74.0 Nonspecific elevation of levels of transaminase and lactic acid dehydrogenase [LDH]; F10.10 Alcohol abuse, uncomplicated
CPT/HCPCS: J2270

== ENCOUNTER 2020-03-03 21:58 | Emergency (ER) | payer OTHER ==
[~2020-03-03] VITALS: Ht 177.8 cm; Wt 104.8 kg
[2020-03-03 22:08] VITALS: Ht 177.8 cm; Wt 104.8 kg
[2020-03-03 23:27] VITALS: BP 156/100
[2020-03-04 01:28] LABS: UA SPECIFIC GRAVITY 1.025 (1.005-1.035); microscopic required? YES; urine erythrocyte NEGATIVE (NEGATIVE)
== END 2020-03-03 23:27 | disposition home or self-care (01) ==
LOC: ED 21:58
PROVIDERS: Emergency Medicine
DX: N47.7 Other inflammatory diseases of prepuce (principal); E11.65 Type 2 diabetes mellitus with hyperglycemia; I10 Essential (primary) hypertension; Z98.890 Other specified postprocedural states
CPT/HCPCS: 82962; 87491; 87591

== ENCOUNTER 2020-03-05 05:03 | Emergency (ER) | payer OTHER ==
[~2020-03-05] VITALS: Ht 177.8 cm; Wt 104.8 kg
[2020-03-05 05:18] VITALS: Ht 177.8 cm; Wt 104.8 kg
[2020-03-05 05:22] LABS: BASOPHIL % 0.4 % (0-2); PLATELET COUNT 228 x10^3mcL (130-400)
[2020-03-05 05:33] LABS: CALCIUM 9.6 mg/dL (8.5-10.1); CARBON DIOXIDE 34.3 mmol/L (21-32); CHLORIDE SERUM 97 mmol/L (98-107); CREATININE SERUM 0.9 mg/dL (0.7-1.3); GFR1 > 60 mL/min; GLUCOSE SERUM 218 mg/dL (74-106); POTASSIUM SERUM 3.8 mmol/L (3.5-5.1); SODIUM SERUM 136 mmol/L (136-145)
[2020-03-05 05:38] LABS: ALBUMIN 3.9 g/dL (3.4-5.0); ALKALINE PHOSPHATASE 114 U/L (46-116); ALT/SGPT 116 U/L (16-63); AST/SGOT 144 U/L (15-37); BILIRUBIN TOTAL 0.6 mg/dL (0.20-1.00)
[2020-03-05 05:41] LABS: TOTAL PROTEIN, SERUM 8.4 g/dL (6.4-8.2)
[2020-03-05 07:58] VITALS: BP 163/101
[2020-03-05 12:09] LABS: AMPHETAMINE QUAL UR POSITIVE (See below)
== END 2020-03-05 07:58 | disposition home or self-care (01) ==
LOC: ED 05:03
PROVIDERS: Emergency Medicine
DX: R10.11 Right upper quadrant pain (principal); R11.10 Vomiting, unspecified; R19.7 Diarrhea, unspecified; R73.9 Hyperglycemia, unspecified; I10 Essential (primary) hypertension
CPT/HCPCS: G0480; J1885; J2060; J3010; J7030

== ENCOUNTER 2020-03-08 00:13 | Emergency (ER) | payer OTHER | END 2020-03-08 02:22 | disposition other institution (70) | LOC: ED 00:13 | DX: Z02.89 Encounter for other administrative examinations (principal) ==

== ENCOUNTER 2020-03-08 00:13 | Emergency (ER) | payer OTHER ==
[~2020-03-08] VITALS: Ht 177.8 cm; Wt 104.3 kg
[2020-03-08 00:16] VITALS: Ht 177.8 cm; Wt 104.3 kg
[2020-03-08 01:46] LABS: CALCIUM 8.8 mg/dL (8.5-10.1); CHLORIDE SERUM 102 mmol/L (98-107); CREATININE SERUM 1.1 mg/dL (0.7-1.3); GFR1 > 60 mL/min; GLUCOSE SERUM 405 mg/dL (74-106); POTASSIUM SERUM 3.4 mmol/L (3.5-5.1); SODIUM SERUM 138 mmol/L (136-145)
[2020-03-08 02:22] VITALS: BP 132/87
== END 2020-03-08 02:22 | disposition other institution (70) ==
LOC: ED 00:13
PROVIDERS: Emergency Medicine
DX: R73.9 Hyperglycemia, unspecified (principal); F10.99 Alcohol use, unspecified with unspecified alcohol-induced disorder; I10 Essential (primary) hypertension; Z90.49 Acquired absence of other specified parts of digestive tract

== ENCOUNTER 2020-03-22 00:04 | Emergency (ER) | payer OTHER ==
[~2020-03-22] VITALS: Ht 177.8 cm; Wt 102.1 kg
[2020-03-22 00:09] VITALS: Ht 177.8 cm; Wt 102.1 kg
[2020-03-22 00:59] LABS: BASOPHIL % 0.8 % (0-2); PLATELET COUNT 193 x10^3mcL (130-400); RED CELL DISTRIBUTION WIDTH 13.5 % (11.5-14.5)
[2020-03-22 01:08] LABS: CALCIUM 8.5 mg/dL (8.5-10.1); CARBON DIOXIDE 23.4 mmol/L (21-32); CHLORIDE SERUM 96 mmol/L (98-107); CREATININE SERUM 1.1 mg/dL (0.7-1.3); GFR1 > 60 mL/min; GLUCOSE SERUM 387 mg/dL (74-106); POTASSIUM SERUM 3.3 mmol/L (3.5-5.1); SODIUM SERUM 134 mmol/L (136-145)
[2020-03-22 01:13] LABS: ALBUMIN 3.6 g/dL (3.4-5.0); ALKALINE PHOSPHATASE 119 U/L (46-116); ALT/SGPT 101 U/L (16-63); AST/SGOT 79 U/L (15-37); BILIRUBIN TOTAL 0.49 mg/dL (0.20-1.00); TOTAL PROTEIN, SERUM 7.6 g/dL (6.4-8.2)
[2020-03-22 02:03] VITALS: BP 165/101
== END 2020-03-22 02:00 | disposition home or self-care (01) ==
LOC: ED 00:04
PROVIDERS: Emergency Medicine
DX: E11.9 Type 2 diabetes mellitus without complications (principal); I10 Essential (primary) hypertension
CPT/HCPCS: 82962; J1815; J7030

== ENCOUNTER 2020-04-28 09:58 | Emergency (ER) | payer OTHER ==
[~2020-04-28] VITALS: Ht 177.8 cm; Wt 100.2 kg
[2020-04-28 10:09] VITALS: Ht 177.8 cm; Wt 100.2 kg
[2020-04-28 11:02] LABS: BASOPHIL % 0.4 % (0-2); PLATELET COUNT 132 x10^3mcL (130-400)
[2020-04-28 11:13] LABS: CALCIUM 8.9 mg/dL (8.5-10.1); CARBON DIOXIDE 24.2 mmol/L (21-32); CHLORIDE SERUM 98 mmol/L (98-107); CREATININE SERUM 0.9 mg/dL (0.7-1.3); GFR1 > 60 mL/min; GLUCOSE SERUM 225 mg/dL (74-106); POTASSIUM SERUM 4.4 mmol/L (3.5-5.1); SODIUM SERUM 130 mmol/L (136-145)
[2020-04-28 11:17] LABS: ALKALINE PHOSPHATASE 89 U/L (46-116); ALT/SGPT 85 U/L (16-63); AST/SGOT 88 U/L (15-37); TOTAL PROTEIN, SERUM 7.3 g/dL (6.4-8.2)
[2020-04-28 11:18] LABS: ALBUMIN 3.2 g/dL (3.4-5.0)
[2020-04-28 13:07] VITALS: BP 110/58
[2020-04-28 14:27] LABS: UA SPECIFIC GRAVITY 1.025 (1.005-1.035); microscopic required? YES; urine erythrocyte 2+ (NEGATIVE)
== END 2020-04-28 13:07 | disposition home or self-care (01) ==
LOC: ED 09:58
PROVIDERS: Emergency Medicine
DX: N39.0 Urinary tract infection, site not specified (principal); R50.9 Fever, unspecified; I10 Essential (primary) hypertension; E11.9 Type 2 diabetes mellitus without complications; Z98.890 Other specified postprocedural states; Z20.828 Contact with and (suspected) exposure to other viral communicable diseases
CPT/HCPCS: J0696; J1885; J3010; J7030; J7060; U0003-CS

== ENCOUNTER 2020-04-30 21:03 | Emergency (ER) | payer OTHER ==
[~2020-04-30] VITALS: Ht 177.8 cm; Wt 104.3 kg
[2020-04-30 21:08] VITALS: Ht 177.8 cm; Wt 104.3 kg
[2020-04-30 23:15] LABS: BASOPHIL % 0.5 % (0-2); PLATELET COUNT 167 x10^3mcL (130-400); RED CELL DISTRIBUTION WIDTH 13.8 % (11.5-14.5)
[2020-04-30 23:36] LABS: CALCIUM 8.3 mg/dL (8.5-10.1); CARBON DIOXIDE 25.2 mmol/L (21-32); CHLORIDE SERUM 100 mmol/L (98-107); CREATININE SERUM 0.7 mg/dL (0.7-1.3); GFR1 > 60 mL/min; GLUCOSE SERUM 249 mg/dL (74-106); POTASSIUM SERUM 3.4 mmol/L (3.5-5.1); SODIUM SERUM 135 mmol/L (136-145)
[2020-04-30 23:39] LABS: ALKALINE PHOSPHATASE 89 U/L (46-116); ALT/SGPT 105 U/L (16-63); AMYLASE 44 U/L (25-115); AST/SGOT 149 U/L (15-37); BILIRUBIN TOTAL 0.53 mg/dL (0.20-1.00); LIPASE 328 IU/L (73-393); TOTAL PROTEIN, SERUM 7.3 g/dL (6.4-8.2)
[2020-04-30 23:40] LABS: ALBUMIN 3.2 g/dL (3.4-5.0)
[2020-05-01 01:21] LABS: UA SPECIFIC GRAVITY <=1.005 (1.005-1.035); microscopic required? YES; urine erythrocyte NEGATIVE (NEGATIVE)
[2020-05-01 03:13] VITALS: BP 149/96
== END 2020-05-01 03:13 | disposition home or self-care (01) ==
LOC: ED 21:03
PROVIDERS: Student in an Organized Health Care Education/Training Program
DX: N12 Tubulo-interstitial nephritis, not specified as acute or chronic (principal); N48.1 Balanitis
CPT/HCPCS: J0696; J2270; J2405; J7030; Q9967

== ENCOUNTER 2020-05-07 02:57 | Emergency (ER) | payer OTHER ==
[~2020-05-07] VITALS: Ht 177.8 cm; Wt 99.0 kg
[2020-05-07 03:08] VITALS: Ht 177.8 cm; Wt 99.0 kg
[2020-05-07 05:24] VITALS: BP 140/80
== END 2020-05-07 05:22 | disposition home or self-care (01) ==
LOC: ED 02:57
DX: S05.02XA Injury of conjunctiva and corneal abrasion without foreign body, left eye, initial encounter (principal); S05.01XA Injury of conjunctiva and corneal abrasion without foreign body, right eye, initial encounter; I10 Essential (primary) hypertension; E11.9 Type 2 diabetes mellitus without complications; F10.10 Alcohol abuse, uncomplicated; F15.10 Other stimulant abuse, uncomplicated; X58.XXXA Exposure to other specified factors, initial encounter; Y93.89 Activity, other specified; Y92.89 Other specified places as the place of occurrence of the external cause; Y99.8 Other external cause status
CPT/HCPCS: J7030; V2632

== ENCOUNTER 2020-05-23 22:01 | Emergency (ER) | payer OTHER ==
[~2020-05-23] VITALS: Ht 177.8 cm; Wt 100.7 kg
[2020-05-23 22:11] VITALS: Ht 177.8 cm; Wt 100.7 kg
[2020-05-23 23:05] LABS: BASOPHIL % 0.4 % (0-2); PLATELET COUNT 172 x10^3mcL (130-400); RED CELL DISTRIBUTION WIDTH 13.5 % (11.5-14.5)
[2020-05-23 23:19] LABS: CALCIUM 9.1 mg/dL (8.5-10.1); CARBON DIOXIDE 25.2 mmol/L (21-32); CHLORIDE SERUM 102 mmol/L (98-107); CREATININE SERUM 0.7 mg/dL (0.7-1.3); GFR1 > 60 mL/min; GLUCOSE SERUM 163 mg/dL (74-106); POTASSIUM SERUM 3.4 mmol/L (3.5-5.1); SODIUM SERUM 131 mmol/L (136-145)
[2020-05-23 23:24] LABS: ALBUMIN 3.5 g/dL (3.4-5.0); ALKALINE PHOSPHATASE 94 U/L (46-116); ALT/SGPT 133 U/L (16-63); AST/SGOT 139 U/L (15-37); BILIRUBIN TOTAL 0.53 mg/dL (0.20-1.00); TOTAL PROTEIN, SERUM 7.4 g/dL (6.4-8.2)
[2020-05-23 23:56] VITALS: BP 173/115
== END 2020-05-23 23:56 | disposition home or self-care (01) ==
LOC: ED 22:01
PROVIDERS: Emergency Medicine
DX: R07.89 Other chest pain (principal); G44.209 Tension-type headache, unspecified, not intractable; I10 Essential (primary) hypertension; E11.9 Type 2 diabetes mellitus without complications; Z90.49 Acquired absence of other specified parts of digestive tract
CPT/HCPCS: 83880; J1885; Q0092

== ENCOUNTER 2020-05-27 21:56 | Emergency (ER) | payer OTHER ==
[~2020-05-27] VITALS: Ht 177.8 cm; Wt 100.2 kg
[2020-05-27 22:03] VITALS: Ht 177.8 cm; Wt 100.2 kg
[2020-05-28 00:37] VITALS: BP 151/98
== END 2020-05-28 00:37 | disposition home or self-care (01) ==
LOC: ED 21:56
DX: R51.9 Headache, unspecified (principal); F10.239 Alcohol dependence with withdrawal, unspecified; I10 Essential (primary) hypertension; E11.9 Type 2 diabetes mellitus without complications
CPT/HCPCS: 82962

== ENCOUNTER 2020-07-02 20:24 | Emergency (ER) | payer OTHER ==
[~2020-07-02] VITALS: Ht 177.8 cm; Wt 100.7 kg
[2020-07-02 21:02] VITALS: Ht 177.8 cm; Wt 100.7 kg
[2020-07-02 21:06] LABS: BASOPHIL % 0.5 % (0-2); PLATELET COUNT 204 x10^3mcL (130-400); RED CELL DISTRIBUTION WIDTH 14.1 % (11.5-14.5)
[2020-07-02 21:15] LABS: CALCIUM 9.2 mg/dL (8.5-10.1); CARBON DIOXIDE 27.1 mmol/L (21-32); CHLORIDE SERUM 97 mmol/L (98-107); CREATININE SERUM 0.9 mg/dL (0.7-1.3); GFR1 > 60 mL/min; GLUCOSE SERUM 253 mg/dL (74-106); POTASSIUM SERUM 3.8 mmol/L (3.5-5.1); SODIUM SERUM 134 mmol/L (136-145)
[2020-07-02 21:20] LABS: ALBUMIN 3.6 g/dL (3.4-5.0); ALKALINE PHOSPHATASE 116 U/L (46-116); ALT/SGPT 187 U/L (16-63); AST/SGOT 248 U/L (15-37); BILIRUBIN TOTAL 0.4 mg/dL (0.20-1.00); LIPASE 263 IU/L (73-393)
[2020-07-02 21:21] LABS: CHOLESTEROL 205 mg/dL (<200); CHOLESTEROL/HDL RATIO 10.3; HDL CHOLESTEROL 20 mg/dL (40-60); TRIGLYCERIDES 286 mg/dL (<150)
[2020-07-02 21:27] LABS: UA SPECIFIC GRAVITY >=1.030 (1.005-1.035); microscopic required? YES; urine erythrocyte TRACE (NEGATIVE)
[2020-07-02 21:28] LABS: T3 TOTAL 1.43 ng/mL
[2020-07-02 21:41] LABS: FREE T4 1.18 ng/dL (0.76-1.46); FREE THYROXINE INDEX 3.2 ug/dL (1.4-4.5); T4(THYROXINE) 9.8 ug/dL (4.7-13.3)
[2020-07-02 23:10] VITALS: BP 155/75
== END 2020-07-02 23:10 | disposition home or self-care (01) ==
LOC: ED 20:24
PROVIDERS: Specialist
DX: R07.89 Other chest pain (principal); I10 Essential (primary) hypertension; E11.9 Type 2 diabetes mellitus without complications; Z98.890 Other specified postprocedural states
CPT/HCPCS: 83880; 84439

== ENCOUNTER 2020-07-08 18:27 | Emergency (ER) | payer OTHER ==
[~2020-07-08] VITALS: Ht 175.3 cm; Wt 103.0 kg
[2020-07-08 18:30] VITALS: Ht 175.3 cm; Wt 103.0 kg
[2020-07-08 20:00] LABS: BASOPHIL % 0.4 % (0-2); PLATELET COUNT 212 x10^3mcL (130-400); RED CELL DISTRIBUTION WIDTH 13.7 % (11.5-14.5)
[2020-07-08 20:10] LABS: CALCIUM 9.2 mg/dL (8.5-10.1); CARBON DIOXIDE 27.4 mmol/L (21-32); CHLORIDE SERUM 99 mmol/L (98-107); CREATININE SERUM 1.1 mg/dL (0.7-1.3); GFR1 > 60 mL/min; GLUCOSE SERUM 222 mg/dL (74-106); POTASSIUM SERUM 3.6 mmol/L (3.5-5.1); SODIUM SERUM 137 mmol/L (136-145)
[2020-07-08 20:14] LABS: ALBUMIN 3.5 g/dL (3.4-5.0); ALKALINE PHOSPHATASE 135 U/L (46-116); ALT/SGPT 192 U/L (16-63); AST/SGOT 243 U/L (15-37); BILIRUBIN TOTAL 0.7 mg/dL (0.20-1.00); LIPASE 210 IU/L (73-393)
[2020-07-08 20:15] LABS: TOTAL PROTEIN, SERUM 8.5 g/dL (6.4-8.2)
[2020-07-08 21:36] VITALS: BP 144/102
== END 2020-07-08 21:36 | disposition home or self-care (01) ==
LOC: ED 18:27
PROVIDERS: Student in an Organized Health Care Education/Training Program
DX: U07.1 COVID-19 (principal); F10.20 Alcohol dependence, uncomplicated; I10 Essential (primary) hypertension; E11.9 Type 2 diabetes mellitus without complications
CPT/HCPCS: 82962; Q0162; U0003

== ENCOUNTER 2020-07-28 11:37 | Emergency (ER) | payer OTHER ==
[~2020-07-28] VITALS: Ht 177.8 cm; Wt 97.5 kg
[2020-07-28 11:46] VITALS: BP 191/115; Ht 177.8 cm; Wt 97.5 kg
== END 2020-07-28 15:05 | disposition home or self-care (01) ==
LOC: ED 11:37
DX: N48.1 Balanitis (principal); I10 Essential (primary) hypertension; E11.9 Type 2 diabetes mellitus without complications
CPT/HCPCS: 82962

== ENCOUNTER 2020-07-30 05:34 | Emergency (ER) | payer OTHER ==
[~2020-07-30] VITALS: Ht 177.8 cm; Wt 98.4 kg
[2020-07-30 06:01] VITALS: Ht 177.8 cm; Wt 98.4 kg
[2020-07-30 11:30] VITALS: BP 166/115
== END 2020-07-30 11:30 | disposition home or self-care (01) ==
LOC: ED 05:34
DX: N48.1 Balanitis (principal); I10 Essential (primary) hypertension; E11.9 Type 2 diabetes mellitus without complications; Z90.49 Acquired absence of other specified parts of digestive tract; Z98.890 Other specified postprocedural states
CPT/HCPCS: J2270; J7030

== ENCOUNTER 2020-07-31 05:31 | Emergency (ER) | payer OTHER ==
[~2020-07-31] VITALS: Ht 177.8 cm; Wt 98.4 kg
[2020-07-31 06:31] VITALS: BP 165/115; Ht 177.8 cm; Wt 98.4 kg
== END 2020-07-31 09:26 | disposition left against medical advice (07) ==
LOC: EDBD 05:31 → ED 05:31
DX: F41.9 Anxiety disorder, unspecified (principal); N48.1 Balanitis; I10 Essential (primary) hypertension; E11.9 Type 2 diabetes mellitus without complications; F15.10 Other stimulant abuse, uncomplicated; F10.10 Alcohol abuse, uncomplicated; Z11.3 Encounter for screening for infections with a predominantly sexual mode of transmission
CPT/HCPCS: J0696

== ENCOUNTER 2020-08-15 19:19 | Emergency (ER) | payer OTHER ==
[~2020-08-15] VITALS: Ht 177.8 cm; Wt 95.3 kg
[2020-08-15 19:56] VITALS: Ht 177.8 cm; Wt 95.3 kg
[2020-08-15 21:52] LABS: BASOPHIL % 0.9 % (0.2-1.5); PLATELET COUNT 226 x10^3mcL (152-348); RED CELL DISTRIBUTION WIDTH 13.5 % (12.1-16.2)
[2020-08-15 21:54] LABS: rbc morphology (normal/abnorm) NORMAL (NORMAL)
[2020-08-15 22:19] LABS: CALCIUM 9.9 mg/dL (8.5-10.1); CARBON DIOXIDE 29.6 mmol/L (21-32); CHLORIDE SERUM 97 mmol/L (98-107); CREATININE SERUM 0.8 mg/dL (0.7-1.3); GFR1 > 60 mL/min; GLUCOSE SERUM 244 mg/dL (74-106); POTASSIUM SERUM 3.7 mmol/L (3.5-5.1); SODIUM SERUM 134 mmol/L (136-145)
[2020-08-15 22:20] LABS: ALBUMIN 3.8 g/dL (3.4-5.0); LIPASE 401 IU/L (73-393)
[2020-08-15 22:34] LABS: ALKALINE PHOSPHATASE 107 U/L (46-116); ALT/SGPT 3 U/L (16-63); AST/SGOT 217 U/L (15-37); BILIRUBIN TOTAL 0.77 mg/dL (0.20-1.00); TOTAL PROTEIN, SERUM 8.6 g/dL (6.4-8.2)
[2020-08-15 23:32] VITALS: BP 162/114
== END 2020-08-15 23:32 | disposition home or self-care (01) ==
LOC: ED 19:19
PROVIDERS: Student in an Organized Health Care Education/Training Program
DX: K63.89 Other specified diseases of intestine (principal); F41.9 Anxiety disorder, unspecified; I10 Essential (primary) hypertension; E11.9 Type 2 diabetes mellitus without complications
CPT/HCPCS: 82962; J1885

== ENCOUNTER 2020-08-22 10:30 | Emergency (ER) | payer OTHER ==
[~2020-08-22] VITALS: Ht 177.8 cm; Wt 93.9 kg
[2020-08-22 10:34] VITALS: Ht 177.8 cm; Wt 93.9 kg
[2020-08-22 12:55] VITALS: BP 157/97
== END 2020-08-22 12:55 | disposition home or self-care (01) ==
LOC: ED 10:30
DX: N47.2 Paraphimosis (principal); I10 Essential (primary) hypertension; E11.9 Type 2 diabetes mellitus without complications; F15.10 Other stimulant abuse, uncomplicated
CPT/HCPCS: J2001; J3490

== ENCOUNTER 2020-09-08 19:58 | Emergency (ER) | payer OTHER ==
[~2020-09-08] VITALS: Ht 177.8 cm; Wt 95.3 kg
[2020-09-08 20:02] VITALS: Ht 177.8 cm; Wt 95.3 kg
[2020-09-08 22:12] LABS: BASOPHIL % 0.6 % (0.2-1.5); PLATELET COUNT 181 x10^3mcL (152-348); RED CELL DISTRIBUTION WIDTH 13.2 % (12.1-16.2)
[2020-09-08 22:55] LABS: CALCIUM 9.7 mg/dL (8.5-10.1); CARBON DIOXIDE 23.4 mmol/L (21-32); CHLORIDE SERUM 96 mmol/L (98-107); CREATININE SERUM 0.7 mg/dL (0.7-1.3); GFR1 > 60 mL/min; GLUCOSE SERUM 331 mg/dL (74-106); POTASSIUM SERUM 3.8 mmol/L (3.5-5.1); SODIUM SERUM 132 mmol/L (136-145)
[2020-09-08 23:00] LABS: ALBUMIN 3.8 g/dL (3.4-5.0); ALKALINE PHOSPHATASE 107 U/L (46-116); BILIRUBIN TOTAL 0.53 mg/dL (0.20-1.00)
[2020-09-08 23:06] LABS: TOTAL PROTEIN, SERUM 8.3 g/dL (6.4-8.2)
[2020-09-08 23:13] LABS: ALT/SGPT 84 U/L (16-63); AST/SGOT 60 U/L (15-37)
[2020-09-09 00:27] VITALS: BP 140/72
== END 2020-09-09 00:27 | disposition home or self-care (01) ==
LOC: ED 19:58
PROVIDERS: Student in an Organized Health Care Education/Training Program
DX: E11.65 Type 2 diabetes mellitus with hyperglycemia (principal); F41.9 Anxiety disorder, unspecified; F15.10 Other stimulant abuse, uncomplicated; I10 Essential (primary) hypertension; E11.9 Type 2 diabetes mellitus without complications; F10.10 Alcohol abuse, uncomplicated; Z90.49 Acquired absence of other specified parts of digestive tract
CPT/HCPCS: 82962; J7030

== ENCOUNTER 2020-09-17 18:11 | Emergency (ER) | payer OTHER ==
[~2020-09-17] VITALS: Ht 177.8 cm; Wt 78.9 kg
[2020-09-17 18:23] VITALS: Ht 177.8 cm; Wt 78.9 kg
[2020-09-17 19:15] LABS: PLATELET COUNT 187 x10^3mcL (152-348); RED CELL DISTRIBUTION WIDTH 13.3 % (12.1-16.2)
[2020-09-17 19:20] LABS: BASOPHIL % 2.7 % (0.2-1.5)
[2020-09-17 19:41] LABS: CALCIUM 8.7 mg/dL (8.5-10.1); CARBON DIOXIDE 28.5 mmol/L (21-32); CHLORIDE SERUM 99 mmol/L (98-107); CREATININE SERUM 0.7 mg/dL (0.7-1.3); GFR1 > 60 mL/min; GLUCOSE SERUM 325 mg/dL (74-106); POTASSIUM SERUM 3.4 mmol/L (3.5-5.1); SODIUM SERUM 136 mmol/L (136-145)
[2020-09-17 19:45] LABS: ALBUMIN 3.7 g/dL (3.4-5.0); ALKALINE PHOSPHATASE 103 U/L (46-116); ALT/SGPT 110 U/L (16-63); AMYLASE 49 U/L (25-115); AST/SGOT 112 U/L (15-37); BILIRUBIN TOTAL 0.5 mg/dL (0.20-1.00); LIPASE 385 IU/L (73-393)
[2020-09-17 19:51] LABS: CHOLESTEROL 232 mg/dL (<200); HDL CHOLESTEROL 17 mg/dL (40-60)
[2020-09-17 19:55] LABS: UA SPECIFIC GRAVITY 1.015 (1.005-1.035); microscopic required? YES; urine erythrocyte TRACE (NEGATIVE)
[2020-09-17 19:59] LABS: rbc morphology (normal/abnorm) NORMAL (NORMAL)
--- NOTE | 2020-09-17 20:46 | NUR ---
FIRST [facility] ATTEMPT UNSUCCESSFUL. PT REFUSING SECOND ATTEMPT. DR. LANDEROS MADE AWARE. WILL CONT. TO MONITOR.
[2020-09-17 23:03] VITALS: BP 150/97
[2020-09-17 23:04] LABS: AMPHETAMINE QUAL UR POSITIVE (See below)
== END 2020-09-17 23:03 | disposition home or self-care (01) ==
LOC: ED 18:11
PROVIDERS: Emergency Medicine
DX: R53.1 Weakness (principal); E11.65 Type 2 diabetes mellitus with hyperglycemia; R74.01 Elevation of levels of liver transaminase levels; E72.20 Disorder of urea cycle metabolism, unspecified; F15.10 Other stimulant abuse, uncomplicated
CPT/HCPCS: 82962; G0480; J1815; J7030; U0003

== ENCOUNTER 2020-09-30 08:19 | Emergency (ER) | payer OTHER ==
[~2020-09-30] VITALS: Ht 177.8 cm; Wt 91.6 kg
[2020-09-30 08:24] VITALS: Ht 177.8 cm; Wt 91.6 kg
[2020-09-30 09:27] LABS: PLATELET COUNT 209 x10^3mcL (152-348); RED CELL DISTRIBUTION WIDTH 13.5 % (12.1-16.2)
[2020-09-30 09:34] LABS: BASOPHIL % 2.1 % (0.2-1.5)
[2020-09-30 09:40] LABS: CALCIUM 9.3 mg/dL (8.5-10.1); CARBON DIOXIDE 24.8 mmol/L (21-32); CHLORIDE SERUM 93 mmol/L (98-107); CREATININE SERUM 0.7 mg/dL (0.7-1.3); GFR1 > 60 mL/min; GLUCOSE SERUM 372 mg/dL (74-106); POTASSIUM SERUM 3.6 mmol/L (3.5-5.1); SODIUM SERUM 128 mmol/L (136-145)
[2020-09-30 09:44] LABS: ALBUMIN 3.6 g/dL (3.4-5.0); ALKALINE PHOSPHATASE 104 U/L (46-116); ALT/SGPT 168 U/L (16-63); AST/SGOT 140 U/L (15-37); BILIRUBIN TOTAL 0.6 mg/dL (0.20-1.00); TOTAL PROTEIN, SERUM 8.1 g/dL (6.4-8.2)
[2020-09-30 09:47] LABS: CHOLESTEROL 245 mg/dL (<200); CHOLESTEROL/HDL RATIO 12.3; HDL CHOLESTEROL 20 mg/dL (40-60); TRIGLYCERIDES 357 mg/dL (<150)
[2020-09-30 09:50] LABS: microscopic required? YES; urine erythrocyte TRACE (NEGATIVE)
[2020-09-30 09:53] LABS: AMPHETAMINE QUAL UR POSITIVE (See below)
[2020-09-30] MEDS ORDERED: PEPCID20 MG GT (10:37)
[2020-09-30 11:40] VITALS: BP 158/94
== END 2020-09-30 11:43 | disposition home or self-care (01) ==
LOC: ED 08:19
PROVIDERS: Specialist
DX: R10.11 Right upper quadrant pain (principal); R10.31 Right lower quadrant pain; R11.10 Vomiting, unspecified; F10.20 Alcohol dependence, uncomplicated; I10 Essential (primary) hypertension; E11.9 Type 2 diabetes mellitus without complications; F15.10 Other stimulant abuse, uncomplicated; Z90.49 Acquired absence of other specified parts of digestive tract; Y90.0 Blood alcohol level of less than 20 mg/100 ml
CPT/HCPCS: 82962; G0480; J3010; J3490

== ENCOUNTER 2020-10-16 14:55 | Emergency (ER) | payer OTHER ==
[~2020-10-16] VITALS: Ht 177.8 cm; Wt 91.6 kg
[~2020-10-16 14:55] MED LIST changes: +PEPCID20 MG GT
[2020-10-16 15:07] VITALS: Ht 177.8 cm; Wt 91.6 kg
[2020-10-16 17:48] LABS: microscopic required? YES; urine erythrocyte 3+ (NEGATIVE)
[2020-10-16 17:56] LABS: CARBON DIOXIDE 24.7 mmol/L (21-32); CHLORIDE SERUM 99 mmol/L (98-107); CREATININE SERUM 0.6 mg/dL (0.7-1.3); GFR1 > 60 mL/min; POTASSIUM SERUM 3.8 mmol/L (3.5-5.1); SODIUM SERUM 136 mmol/L (136-145)
[2020-10-16 18:09] LABS: GLUCOSE SERUM 289 mg/dL (74-106)
[2020-10-16 18:14] LABS: BASOPHIL % 0.6 % (0.2-1.5); PLATELET COUNT 186 x10^3mcL (152-348); RED CELL DISTRIBUTION WIDTH 13.1 % (12.1-16.2)
[2020-10-16] MEDS ORDERED: MOT800 PO (19:25)
[2020-10-16] MEDS ORDERED: KEF500 PO (19:25)
[2020-10-16 19:37] VITALS: BP 157/102
== END 2020-10-16 19:52 | disposition home or self-care (01) ==
LOC: ED 14:55
PROVIDERS: Specialist
DX: N39.0 Urinary tract infection, site not specified (principal); F15.20 Other stimulant dependence, uncomplicated
CPT/HCPCS: J0696; J1885; J2405; J3010; J7030; J7060